=== PATIENT | male | born 1960 | race Caucasian/White ===

== ENCOUNTER 2016-12-18 10:47 | Day surgery (SDC) | payer OTHER ==
[~2016-12-18] VITALS: Ht 182.9 cm; Wt 104.3 kg
[2016-12-18 11:33] LABS: EOSINOPHIL COUNT 0.5 K/uL (0-0.3); HEMATOCRIT 38.1 % (38.0-50.0); IMMATURE GRANULOCYTE (%) 0.3 % (0.0-0.7); INSTRUMENT ABS NEUTROPHIL CT 6.6 K/uL; LYMPHOCYTE COUNT 1.4 K/uL (1.0-2.8); MCH 29.1 PG (29.0-34.0); MCHC 34.6 G/DL (30.0-36.0); MCV 84.1 FL (86-99); MEAN PLAT.VOLUME 9.5 uM^3 (9.0-12.4); MONOCYTE COUNT 0.8 K/uL (0-0.8); NEUTROPHIL (%) 70.3 % (45-76); NEUTROPHIL COUNT 6.6 K/uL (1.8-6.4); PLATELET COUNT 208 K/uL (156-360); RBC DIS.WIDTH-CV 12.5 % (11.8-14.6); RBC DIS.WIDTH-SD 37.8 % (39-53); RED BLOOD COUNT 4.53 M/uL (4.00-5.50); WHITE BLOOD COUNT 9.3 K/uL (4.1-10.2)
[2016-12-18 11:54] LABS: ANION GAP 5 MEQ/L (2-14); CHLORIDE 107 MEQ/L (99-109); POTASSIUM 5.2 MEQ/L (3.7-5.4); SAMPLE HEMOLYSIS CHECK 0; SAMPLE ICTERIC CHECK 0; SAMPLE LIPEMIA CHECK 0; SODIUM 141 MEQ/L (136-147); TOTAL BILIRUBIN 0.8 MG/DL (0.0-1.0)
[2016-12-18] MEDS ORDERED: GLUCOPHAGE850 MG PO (11:56)
[2016-12-18] MEDS ORDERED: SIMVASTATIN80 MG PO (11:58)
[2016-12-18] MEDS ORDERED: ZESTRIL5 MG PO (11:58)
[2016-12-18] MEDS ORDERED: SIMVASTATIN40 MG PO (11:58)
[2016-12-18] MEDS ORDERED: GABAPENTIN600 MG PO ×2 (11:59)
[2016-12-18 12:00] LABS: ALKALINE PHOSPHATASE 59 IU/L (3-129); GFR ESTIMATE (CALCULATED) > 59 mL/min/; GLUCOSE 230 mg/dL (70-99); UREA NITROGEN (BUN) 26 mg/dL (9-23)
[2016-12-18] MEDS ORDERED: PRILOSEC20 MG PO (12:00)
[2016-12-18] MEDS ORDERED: ZANTAC150 MG PO (12:00)
[2016-12-18] MEDS ORDERED: VITAMIN D32000 UNI1 PO (12:01)
[2016-12-18] MEDS ORDERED: LANTUS 3 M100 UNITS1 SQ (12:02)
[2016-12-18] MEDS ORDERED: NOVOLOG PE100 UNITS/ SC (12:02)
[2016-12-18 12:16] VITALS: BP 160/90
[2016-12-18 16:20] LABS: POINT-OF-CARE METER ID UU13113675; POINT-OF-CARE USER ID 515036437
[2016-12-18 17:19] VITALS: BP 151/73
[2016-12-18 18:00] VITALS: BP 160/60
== END 2016-12-18 18:18 | disposition home or self-care (01) ==
LOC: SDC 10:47
PROVIDERS: Ophthalmology
DX: H33.021 Retinal detachment with multiple breaks, right eye (principal); E11.40 Type 2 diabetes mellitus with diabetic neuropathy, unspecified; I10 Essential (primary) hypertension; E78.5 Hyperlipidemia, unspecified; Z79.84 Long term (current) use of oral hypoglycemic drugs; Z79.4 Long term (current) use of insulin
CPT/HCPCS: 80053; 82948; 85025; 93005; J0131; J0330; J0690; J1170; J2405; J3010; J3300